=== PATIENT | male | born 2000 | race Caucasian/White ===

== ENCOUNTER 2024-10-14 10:02 | Outpatient (CLI) | payer OTHER, SELFPAY ==
--- NOTE | 2024-10-14 11:30 | NEURO_ITS ---
Impression: # Complains of right hand pain. ? # No Carpal Tunnel Syndrome. 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 ? # Normal needle/EMG exam. ? # Clinical correlation recommended. Nerve Conduction Studies Anti Sensory Summary Table ?Stim Site NR Peak (ms) P-T Amp (?V) Site1 Site2 Delta-P (ms) Dist (cm) Nic (m/s) Right Median Anti Sensory (2-3nd Digit) Wrist ? 3.5 80.5 Wrist 2-3nd Digit 3.5 14.0 40 Wrist ? 3.3 69.4 Wrist 2-3nd Digit 3.5 14.0 40 Right Radial Anti Sensory (Base 1st Digit) Wrist ? 2.0 9.5 Wrist Base 1st Digit 2.0 0.0 Right Ulnar Anti Sensory (5th Digit) Wrist ? 2.9 49.2 Wrist 5th Digit 2.9 14.0 48 Motor Summary Table ?Stim Site NR Onset (ms) O-P Amp (mV) Site1 Site2 Delta-0 (ms) Dist (cm) Nic (m/s) Right Median Motor (Abd Poll Brev) Wrist ? 3.8 8.6 Elbow Wrist 4.8 28.0 58 Elbow ? 8.6 8.1 Right Ulnar Motor (Abd Dig Minimi) Wrist ? 2.7 8.2 A Elbow Wrist 5.5 29.0 53 A Elbow ? 8.2 7.1 B Elbow Wrist 4.0 22.0 55 B Elbow ? 6.7 6.9 F Wave Studies ?NR F-Lat (ms) L-R F-Lat (ms) Right Median (Mrkrs) (Abd Poll Brev) ? 29.12 Right Ulnar (Mrkrs) (Abd Dig Min) ? 30.76 EMG ?Side Muscle Nerve Root Ins Act Fibs Amp Dur Recrt Comment Right 1stDorInt Ulnar C8-T1 Nml Nml Nml Nml Nml Right Ext Indicis Radial (Post Int) C7-8 Nml Nml Nml Nml Nml Right Ext Digitorum Radial (Post Int) C7-8 Nml Nml Nml Nml Nml Right BrachioRad Radial C5-6 Nml Nml Nml Nml Nml Right PronatorTeres Median C6-7 Nml Nml Nml Nml Nml Right Abd Poll Brev Median C8-T1 Nml Nml Nml Nml Nml Right ABD Dig Min Ulnar C8-T1 Nml Nml Nml Nml Nml Right FlexPolLong Median (Ant Int) C7-8 Nml Nml Nml Nml Nml Right Abd Poll Long Radial (Post Int) C7-8 Nml Nml Nml Nml Nml
== END 2024-10-14 10:03 | disposition home or self-care (01) ==
PROVIDERS: Visit Provider Internal Medicine
DX: G56.21 Lesion of ulnar nerve, right upper limb (principal)
CPT/HCPCS: 95886; 95909